=== PATIENT | female | born 1960 | race Caucasian/White ===

== ENCOUNTER 2016-09-24 23:12 | Emergency (ER) | payer OTHER ==
[2016-09-24] MEDS ORDERED: ASPIRIN 81 MG CHEW TABLET As Ordered ONE (23:39)
[2016-09-24 23:56] LABS: BASO # 0.2 K/mm3 (0.0-0.2); BASO % 2.3 % (0.0-1.0); EOS # 0.1 K/mm3 (0.0-0.50); EOS % 1.9 % (0.0-3.0); LARGE UNSTAINED CELL # 0.2 K/mm3 (0.0-0.4); LARGE UNSTAINED CELL % 2.5 % (0.0-4.0); LYMPH # 2.6 K/mm3 (1.5-4.5); LYMPH % 33.1 % (24.0-44.0); MEAN CORPUSCULAR HEMOGLOBIN 29.7 pg (27.0-33.0); MEAN CORPUSCULAR HGB CONC 33.1 g/dl (32.0-36.5); MEAN CORPUSCULAR VOLUME 89.6 fl (80.0-96.0); MONO # 0.4 K/mm3 (0.0-0.8); MONO % 5.6 % (0.0-5.0); NEUTROPHILS % 54.6 % (36.0-66.0); PLATELET COUNT, AUTOMATED 215 k/mm3 (150-450); WHITE BLOOD COUNT 7.3 K/mm3 (4.0-10.0)
[2016-09-25 00:10] LABS: ANION GAP 8 MEQ/L (8-16); BLOOD UREA NITROGEN 15 MG/DL (7-18); CALCIUM LEVEL 9.3 MG/DL (8.5-10.1); CARBON DIOXIDE LEVEL 30 MEQ/L (21-32); CHLORIDE LEVEL 110 MEQ/L (98-107); CREATININE FOR GFR 1.02 MG/DL (0.55-1.02); GLOMERULAR FILTRATION RATE 59.5 (>51); GLUCOSE, FASTING 128 MG/DL (70-105); POTASSIUM SERUM 4.5 MEQ/L (3.5-5.1); SODIUM LEVEL 148 MEQ/L (136-145)
[2016-09-25] MEDS ORDERED: KETOROLAC 30 MG/ML VIAL (J1885) As Ordered ONE (01:12)
--- NOTE | 2016-09-25 04:32 | EDDOCDS ---
Nurse's Notes [facility] Name: Jace Todd Age: 56 yrs Sex: Female : 1960 Arrival Date: 09/24/2016 Time: 23:12 Bed OBSERVATION Private MD: Belgica Wiggins PA-C Diagnosis: Other chest pain-Chest wall pain Presentation: 09/24 23:18 Presenting complaint: Patient states: upper left sided chest pain for past few days sls1 worse with cough and breathing pain is sharp and does not radiate. Aspirin was not taken prior to arrival. Adult Sepsis Screening: The patient does not have new or worsening altered mentation. Patient's respiratory rate is less than 22. Systolic blood pressure is greater than 100. Patient has a qSOFA score of 0- Negative Sepsis Screen. Suicide/Homicide risk assessment- the patient denies having any suicidal and/or homicidal ideations and does not present with any other emotional, behavioral or mental health complaints. Status: Patient is not a public service representative or dependent. Transition of care: patient was not received from another setting of care. 23:18 Acuity: [place] Level 2 sls1 23:18 Method Of Arrival: Walkin/Carried/Asstd sls1 Triage Assessment: 23:20 General: Appears in no apparent distress, Behavior is appropriate for age, cooperative. sls1 Pain: Location: anterior aspect of left upper chest and left breast Pain currently is 8 out of 10 on a pain scale. Pt Declines HIV testing. The patient is triaged at the bedside. See Assessment in Nurses Notes section of ED record. Neurological: Level of Consciousness is awake, alert. Cardiovascular: Capillary refill < 3 seconds Chest pain is described as Pain is 8 out of 10 on a pain scale. radiates Does not radiate. episodes are continuous two days began two days. Derm: No deficits noted. Historical: - Allergies: PENICILLINS; - Home Meds: 1. migraine medication as needed - PMHx: Migraine Headaches; - PSHx: spinal injections; - Social history: Smoking status: Patient uses tobacco products, light tobacco smoker. No barriers to communication noted, The patient speaks fluent Albanian, Speaks appropriately for age. - Family history: Not pertinent. - : The pt / caregiver states he / she is not on anticoagulants. Home medication list is obtained from the patient. - Exposure Risk Screening:: None identified. Screenin/02 01:04 Screening information is obtained from the patient. Fall risk: No risks identified. af2 Assistance ADL's: requires no assistance with activities of daily living. Abuse/DV Screen: The patient / caregiver reports he/she is: not in a situation that causes fear, pain or injury. Nutritional screening: No deficits noted. Advance Directives: Currently, there is no health care proxy. home support is adequate. Assessment: 09/24 23:52 General: Appears in no apparent distress, Behavior is appropriate for age, Smells of af2 smoke. Neurological: Level of Consciousness is awake, alert, obeys commands, Oriented to person, place, time. Cardiovascular: Heart tones S1 S2 present Rhythm is sinus rhythm No ectopy. Respiratory: Airway is patent Respiratory effort is even, unlabored, Breath sounds are clear bilaterally. Derm: Skin is intact, is healthy with good turgor, Skin is normal. 09/25 01:14 General: Appears in no apparent distress, Behavior is appropriate for age. af2 Neurological: Level of Consciousness is awake, alert, obeys commands, Oriented to person, place, time. Respiratory: Airway is patent Respiratory effort is even, unlabored. Derm: Skin is normal. 02:15 General: Appears in no apparent distress, Behavior is appropriate for age, cooperative. af2 Neurological: Level of Consciousness is awake, alert, obeys commands, Oriented to person, place, time. Cardiovascular: Rhythm is sinus rhythm No ectopy. Respiratory: Airway is patent Respiratory effort is even, unlabored. Derm: Skin is intact, is healthy with good turgor, Skin is normal. 03:26 General: Appears in no apparent distress, Behavior is appropriate for age, cooperative. af2 Neurological: Level of Consciousness is awake, alert, obeys commands, Oriented to person, place, time. Cardiovascular: Rhythm is sinus rhythm No ectopy. Respiratory: Airway is patent Respiratory effort is even, unlabored. Derm: Skin is intact, is healthy with good turgor, Skin is normal. 04:30 General: Appears in no apparent distress, Behavior is appropriate for age, cooperative, sls1 discharge instructions reviewed with pt including medication use and follow up care, verbalizes understanding of all instructions. Pain: Denies pain. Neurological: Level of Consciousness is awake, alert. Respiratory: Airway is patent Respiratory effort is even, unlabored, Respiratory pattern is regular, symmetrical. Vital Signs: 09/24 23:14 BP 207 / 101; Pulse 95; Resp 18; Temp 97.2; Pulse Ox 100% ; Weight 59.87 kg; Height 5 elp ft. 0 in. (152.40 cm); Pain 810; 23:33 BP 175 / 94 (auto/); af2 23:34 Pulse 84 MON; Resp 18 S; Pulse Ox 98% on R/A; af2 23:37 BP 175 / 94; Pulse 92; Resp 20; Temp 97.2(O); Pulse Ox 98% on R/A; Weight 59.87 kg (R); jmv Height 5 ft. (152.40 cm) (R); Pain 8; 23:37 BP 173 / 85 (auto/); af2 23:38 Pulse 92 MON; Resp 18 S; Pulse Ox 96% on R/A; af2 23:52 BP 152 / 78 (auto/); af2 23:53 Pulse 76 MON; Resp 18 S; Pulse Ox 94% on R/A; af2 09/25 00:07 BP 144 / 81 (auto/); af2 00:08 Pulse 74 MON; Resp 18 S; Pulse Ox 95% on R/A; af2 00:22 BP 138 / 72 (auto/); af2 00:23 Pulse 74 MON; Resp 18 S; Pulse Ox 94% on R/A; af2 00:37 BP 140 / 70 (auto/); af2 00:38 Pulse 70 MON; Resp 18 S; Pulse Ox 94% on R/A; af2 00:52 BP 124 / 69 (auto/); af2 00:53 Pulse 72 MON; Resp 18 S; Pulse Ox 94% on R/A; af2 01:07 BP 127 / 62 (auto/); af2 01:08 Pulse 70 MON; Pulse Ox 94% ; af2 01:22 BP 159 / 79 (auto/); af 01:23 Pulse 74 MON; Pulse Ox 95% ; af2 01:37 BP 162 / 88 (auto/); af2 01:38 Pulse 70 MON; Pulse Ox 97% ; af2 01:52 BP 142 / 78 (auto/); af2 01:53 Pulse 72 MON; Pulse Ox 97% ; af2 02:07 BP 165 / 86 (auto/); af2 02:07 Pulse 86 MON; Pulse Ox 97% ; af2 02:22 BP 120 / 57 (auto/); af2 02:23 Pulse 70 MON; Pulse Ox 96% ; af2 02:37 BP 134 / 71 (auto/); af2 02:38 Pulse 68 MON; Pulse Ox 96% ; af2 02:52 BP 130 / 66 (auto/); af2 02:53 Pulse 64 MON; Pulse Ox 96% ; af2 03:07 BP 149 / 89 (auto/); af2 03:08 Pulse 68 MON; Pulse Ox 97% ; af2 03:22 BP 159 / 89 (auto/); af2 03:23 Pulse 72 MON; Pulse Ox 97% ; af2 03:37 BP 146 / 83 (auto/); sls1 03:38 Pulse 70 MON; Pulse Ox 95% ; sls1 03:52 BP 152 / 88 (auto/); sls1 03:54 Pulse 70 MON; Pulse Ox 97% ; sls1 04:07 BP 159 / 88 (auto/); sls1 04:08 Pulse 68 MON; Pulse Ox 97% ; sls1 04:09 BP 159 / 88; Pulse 68; Resp 18; Temp 97.5(TE); Pulse Ox 97% on R/A; Pain 0/10; antione 04:22 BP 154 / 81 (auto/); sls1 04:23 Pulse 66 MON; Resp 18; Temp 97.2(TE); Pulse Ox 97% on R/A; Pain 0/10; sls1 09/24 23:37 Body Mass Index 25.78 (59.87 kg, 152.40 cm) [facility] Vitals: 09/24 23:14 Log In Time: September 24, 2016 at 23:12. RN notified that patient meets Red Flag elp criteria. ED Course: 23:13 Patient visited by Masha Fu PCA. elp 23:13 Belgica Wiggins is Private Physician. elp 23:13 Patient moved to Waiting elp 23:14 Patient visited by Masha Fu PCA. elp 23:17 Kizzy Sanchez,RN is Primary Nurse. elp 23:17 Patient moved to 12 elp 23:18 [facility] bs6 23:18 Albin Watts DO is Attending Physician. bs6 23:20 Patient visited by Angelita Dorado DO. bs6 23:20 Patient visited by Angelita Dorado DO. bs6 23:20 Triage Initiated sls1 23:36 EKG done. (by ED staff). Reviewed by Angelita Dorado DO. jmv 23:37 Pt greeted and oriented to ED. Patient advised of names of staff involved in care, [facility] location of call beal, wait times and NPO status. Patient has correct armband on for positive identification. Placed in gown. Bed in low position. Call light in reach. Side rails up X2. multimedia engineer on. Pulse ox on. NIBP on. 23:39 Patient visited by Pedro Luis Sanches PCA. jmv 23:51 Patient visited by Kizzy Sanchez RN. af2 23:52 The patient / caregiver is instructed regarding the plan of care and ED course. af2 23:52 Troponin Sent. af2 23:52 Cardiac Injury Profile Sent. af2 23:52 CBC with Diff Sent. af2 23:52 Basic Metabolic Profile Sent. af2 23:52 Inserted saline lock: 18 gauge in right antecubital area and blood collected. The af2 patient tolerated the procedure well. 23:52 No procedures done that require assistance. af2 23:53 Patient visited by Kizzy Sanchez RN. af2 23:58 [facility] Payment Agreement was scanned into [employer] and attached to record. lja 01 00:25 Patient visited by Kizzy Sanchez RN. af2 00:47 Patient moved to OBSERVATION cs11 01:17 Patient visited by Kizzy Sanchez RN. af2 03:18 EKG done. (by ED staff). Reviewed by Angelita Dorado DO. antione 03:24 CARDIAC MARKER PANEL Sent. af2 03:27 Patient visited by Kizzy Sanchez RN. af2 04:06 Belgica Wiggins is Referral Physician. bs6 04:06 Paresh Curiel MD is Referral Physician. bs6 04:10 Patient visited by Marianne Serrato PCA. antione 04:23 Discontinued lock intact, bleeding controlled, pressure dressing applied, No sls1 redness/swelling at site. Administered Medications: 09/24 23:52 Drug: Aspirin 324 mg [aspirin 81 mg chewable tablet (4 tabs)] Route: PO; af2 09/25 01:17 Drug: ketorolac 30 mg [ketorolac 30 mg/mL (1 mL) injection solution (1 mL)] Route: IVP; af2 Site: right antecubital; Order Results: Lab Order: Basic Metabolic Profile; SPEC'M 09/24/16 23:24 Test: GLUCOSE, FASTING; Value: 128; Range: 70-105; Abnormal: Above high normal; Units: MG/DL; Status: F Test: BLOOD UREA NITROGEN; Value: 15; Range: 7-18; Units: MG/DL; Status: F Test: CREATININE FOR GFR; Value: 1.02; Range: 0.55-1.02; Units: MG/DL; Status: F Test: GLOMERULAR FILTRATION RATE; Value: 59.5; Range: >51; Status: F Test: SODIUM LEVEL; Value: 148; Range: 136-145; Abnormal: Above high normal; Units: MEQ/L; Status: F Test: POTASSIUM SERUM; Value: 4.5; Range: 3.5-5.1; Units: MEQ/L; Status: F Test: CHLORIDE LEVEL; Value: 110; Range: 98-107; Abnormal: Above high normal; Units: MEQ/L; Status: F Test: CARBON DIOXIDE LEVEL; Value: 30; Range: 21-32; Units: MEQ/L; Status: F Test: ANION GAP; Value: 8; Range: 8-16; Units: MEQ/L; Status: F Test: CALCIUM LEVEL; Value: 9.3; Range: 8.5-10.1; Units: MG/DL; Status: F Test Note: ; Units are mL/min/1.73 m2 Chronic Kidney Disease Staging per NKF: Stage I & II GFR >=60 Normal to Mildly Decreased Stage III GFR 30-59 Moderately Decreased Stage IV GFR 15-29 Severely Decreased Stage V GFR <15 Very Little GFR Left ESRD GFR <15 on FUR BLOWING MACHINE ATTENDANT Lab Order: CBC with Diff; SPEC'M 09/24/16 23:24 Test: WHITE BLOOD COUNT; Value: 7.3; Range: 4.0-10.0; Units: K/mm3; Status: F Test: RED BLOOD COUNT; Value: 5.41; Range: 4.00-5.40; Abnormal: Above high normal; Units: M/mm3; Status: F Test: HEMOGLOBIN; Value: 16.1; Range: 12.0-16.0; Abnormal: Above high normal; Units: g/dl; Status: F Test: HEMATOCRIT; Value: 48.5; Range: 36.0-47.0; Abnormal: Above high normal; Units: %; Status: F Test: MEAN CORPUSCULAR VOLUME; Value: 89.6; Range: 80.0-96.0; Units: fl; Status: F Test: MEAN CORPUSCULAR HEMOGLOBIN; Value: 29.7; Range: 27.0-33.0; Units: pg; Status: F Test: MEAN CORPUSCULAR HGB CONC; Value: 33.1; Range: 32.0-36.5; Units: g/dl; Status: F Test: RED CELL DISTRIBUTION WIDTH; Value: 13.0; Range: 11.5-14.5; Units: %; Status: F Test: PLATELET COUNT, AUTOMATED; Value: 215; Range: 150-450; Units: k/mm3; Status: F Test: NEUTROPHILS %; Value: 54.6; Range: 36.0-66.0; Units: %; Status: F Test: LYMPH %; Value: 33.1; Range: 24.0-44.0; Units: %; Status: F Test: MONO %; Value: 5.6; Range: 0.0-5.0; Abnormal: Above high normal; Units: %; Status: F Test: EOS %; Value: 1.9; Range: 0.0-3.0; Units: %; Status: F Test: BASO %; Value: 2.3; Range: 0.0-1.0; Abnormal: Above high normal; Units: %; Status: F Test: LARGE UNSTAINED CELL %; Value: 2.5; Range: 0.0-4.0; Units: %; Status: F Test: NEUTROPHILS #; Value: 4.0; Range: 1.8-7.7; Units: K/mm3; Status: F Test: LYMPH #; Value: 2.6; Range: 1.5-4.5; Units: K/mm3; Status: F Test: MONO #; Value: 0.4; Range: 0.0-0.8; Units: K/mm3; Status: F Test: EOS #; Value: 0.1; Range: 0.0-0.50; Units: K/mm3; Status: F Test: BASO #; Value: 0.2; Range: 0.0-0.2; Units: K/mm3; Status: F Test: LARGE UNSTAINED CELL #; Value: 0.2; Range: 0.0-0.4; Units: K/mm3; Status: F Lab Order: Cardiac Injury Profile; [facility]' 09/24/16 23:24 Test: CPK CREATINE PHOSPHOKINASE; Value: 93; Range: 26-192; Units: U/L; Status: F Test: CK-MB VALUE MASS; Value: 1.0; Range: 0.0-3.6; Units: NG/ML; Status: F Test: MB/CK RELATIVE INDEX; Value: 1.07; Range: < OR =4; Status: F Test Note: ; DIAGNOSIS CRITERIA MMB ng/ml Relative Index (RI) NON-AMI < or = 5 N/A VERG[place] ZONE > 5 < or = 4 AMI > 5 > 4 Lab Order: Troponin; [facility]' 09/24/16 23:24 Test: TROPONIN I; Value: < 0.02; Range: < 0.10; Units: NG/ML; Status: F Test Note: ; Troponin I Reference Interval for [employer] LOCI: 99th Percentile= 0.00-0.045 ng/ml Risk Stratification: <= 0.10 ng/ml Decreased Risk for Adverse Clinical Events. 0.10-1.50 ng/ml Increased Risk for Adverse Clinical Events. Evaluation of additional criterion and/or repeat testing in 2-6 hours is suggested to rule out myocardial damage. >= 1.50 ng/ml Indicative of Myocardial Injury. Lab Order: CARDIAC MARKER PANEL; SPEC' 09/25/16 03:23 Test: CPK CREATINE PHOSPHOKINASE; Value: 72; Range: 26-192; Units: U/L; Status: F Test: CK-MB VALUE MASS; Value: 1.0; Range: 0.0-3.6; Units: NG/ML; Status: F Test: MB/CK RELATIVE INDEX; Value: 1.38; Range: < OR =4; Status: F Test: TROPONIN I; Value: < 0.02; Range: < 0.10; Units: NG/ML; Status: F Test Note: ; DIAGNOSIS CRITERIA MMB ng/ml Relative Index (RI) NON-AMI < or = 5 N/A VERG[place] ZONE > 5 < or = 4 AMI > 5 > 4 Outcome: 04:07 Discharge ordered by Provider. bs6 04:23 Discharge Assessment: Patient awake, alert and oriented x 3. No cognitive and/or sls1 functional deficits noted. Patient verbalized understanding of disposition instructions. patient administered narcotics - no. The following High Risk Discharge criteria are identified: None. Discharged to home ambulatory. Condition: stable. Discharge instructions given to patient, Instructed on discharge instructions, follow up and referral plans. medication usage, Demonstrated understanding of instructions, medications, Pt was receptive of discharge instructions/ teaching. Prescriptions given X 2. No special radiology studies were completed. Property sent home with patient. 04:32 Patient left the ED. sls1 Signatures: Marianne Serrato, BEAUTY CULTURE TEACHER BEAUTY CULTURE TEACHER Gloria Clinton, RN RN sls1 Albin Watts, DO DO cs11 Leigh Pedro, BEAUTY CULTURE TEACHER BEAUTY CULTURE TEACHER tmm1 Masha Fu, BEAUTY CULTURE TEACHER BEAUTY CULTURE TEACHER elp Angelita Dorado, DO DO bs6 Kizzy Sanchez RN RN af2 Laith, Pedro Luis Hickey, BEAUTY CULTURE TEACHER BEAUTY CULTURE TEACHER jmv Corrections: (The following items were deleted from the chart) 01:00 00:52 CARDIAC MARKER PANEL+LAB sent. tmm1 EDMS MTDD
--- NOTE | 2016-09-25 04:32 | EDDOCDS ---
Physician Documentation [facility] Name: Jace Todd Age: 56 yrs Sex: Female : 1960 Arrival Date: 09/24/2016 Time: 23:12 Bed OBSERVATION Private MD: Belgica Wiggins PA-C Disposition: 09/25/16 04:07 Discharged to Home/Self Care. Impression: Other chest pain - Chest wall pain. - Condition is Stable. - Discharge Instructions: Chest Wall Pain. - Prescriptions for Ibuprofen 600 mg Oral Tablet - take 1 tablet by ORAL route every 6 hours As needed take with food; 30 tablet. Aspirin 81 mg - take 1 tablet by ORAL route once daily; 90 tablet. - Medication Reconciliation, Local Pharmacy Hours form. - Follow up: Belgica Wiggins; When: Call to arrange an appointment; Reason: Recheck today's complaints, Continuance of care. Follow up: Paresh Curiel MD; When: Call to arrange an appointment; Reason: To establish care. - Problem is new. - Symptoms have improved. Historical: - Allergies: PENICILLINS; - Home Meds: 1. migraine medication as needed - PMHx: Migraine Headaches; - PSHx: spinal injections; - Social history: Smoking status: Patient uses tobacco products, light tobacco smoker. No barriers to communication noted, The patient speaks fluent Hungarian, Speaks appropriately for age. - Family history: Not pertinent. - : The pt / caregiver states he / she is not on anticoagulants. Home medication list is obtained from the patient. - Exposure Risk Screening:: None identified. Vital Signs: 09/24 23:14 BP 207 / 101; Pulse 95; Resp 18; Temp 97.2; Pulse Ox 100% ; Weight 59.87 kg / 131.99 elp lbs; Height 5 ft. 0 in. (152.40 cm); Pain 8/10; 23:33 BP 175 / 94 (auto/); af2 23:34 Pulse 84 MON; Resp 18 S; Pulse Ox 98% on R/A; af2 23:37 BP 175 / 94; Pulse 92; Resp 20; Temp 97.2(O); Pulse Ox 98% on R/A; Weight 59.87 kg / jmv 131.99 lbs (R); Height 5 ft. (152.40 cm) (R); Pain 8/10; 23:37 BP 173 / 85 (auto/); af2 23:38 Pulse 92 MON; Resp 18 S; Pulse Ox 96% on R/A; af2 23:52 BP 152 / 78 (auto/); af2 23:53 Pulse 76 MON; Resp 18 S; Pulse Ox 94% on R/A; af2 / 00:07 BP 144 / 81 (auto/); af2 00:08 Pulse 74 MON; Resp 18 S; Pulse Ox 95% on R/A; af2 00:22 BP 138 / 72 (auto/); af2 00:23 Pulse 74 MON; Resp 18 S; Pulse Ox 94% on R/A; af2 00:37 BP 140 / 70 (auto/); af2 00:38 Pulse 70 MON; Resp 18 S; Pulse Ox 94% on R/A; af2 00:52 BP 124 / 69 (auto/); af2 00:53 Pulse 72 MON; Resp 18 S; Pulse Ox 94% on R/A; af2 01:07 BP 127 / 62 (auto/); af2 01:08 Pulse 70 MON; Pulse Ox 94% ; af2 01:22 BP 159 / 79 (auto/); af2 01:23 Pulse 74 MON; Pulse Ox 95% ; af2 01:37 BP 162 / 88 (auto/); af2 01:38 Pulse 70 MON; Pulse Ox 97% ; af2 01:52 BP 142 / 78 (auto/); af2 01:53 Pulse 72 MON; Pulse Ox 97% ; af2 02:07 BP 165 / 86 (auto/); af2 02:07 Pulse 86 MON; Pulse Ox 97% ; af2 02:22 BP 120 / 57 (auto/); af2 02:23 Pulse 70 MON; Pulse Ox 96% ; af2 02:37 BP 134 / 71 (auto/); af2 02:38 Pulse 68 MON; Pulse Ox 96% ; af2 02:52 BP 130 / 66 (auto/); af2 02:53 Pulse 64 MON; Pulse Ox 96% ; af2 03:07 BP 149 / 89 (auto/); af2 03:08 Pulse 68 MON; Pulse Ox 97% ; af2 03:22 BP 159 / 89 (auto/); af2 03:23 Pulse 72 MON; Pulse Ox 97% ; af2 03:37 BP 146 / 83 (auto/); sls1 03:38 Pulse 70 MON; Pulse Ox 95% ; sls1 03:52 BP 152 / 88 (auto/); sls1 03:54 Pulse 70 MON; Pulse Ox 97% ; sls1 04:07 BP 159 / 88 (auto/); sls1 04:08 Pulse 68 MON; Pulse Ox 97% ; sls1 04:09 BP 159 / 88; Pulse 68; Resp 18; Temp 97.5(TE); Pulse Ox 97% on R/A; Pain 0/10; antione 04:22 BP 154 / 81 (auto/); sls1 04:23 Pulse 66 MON; Resp 18; Temp 97.2(TE); Pulse Ox 97% on R/A; Pain 0/10; sls1 09/24 23:37 Body Mass Index 25.78 (59.87 kg, 152.40 cm) jmv MDM: 09/24 23:18 ECG WITH READING ER PHYS+CARDIAG ordered. EDMS 23:36 Aspirin Chewable Tablet 324 mg PO once ordered. bs6 23:36 Neon Sign Maker/Pulse Ox/q 30 min VS ordered. bs6 23:36 IV Saline Lock ordered. bs6 23:36 Rhythm Strip to chart ordered. bs6 23:36 Undress patient appropriately for examination ordered. bs6 23:37 Basic Metabolic Profile Ordered. EDMS 23:37 CBC with Diff Ordered. EDMS 23:37 Cardiac Injury Profile Ordered. EDMS 23:37 Troponin Ordered. EDMS 23:37 Chest, 2 View (pa\E\lat) Ordered. EDMS 23:58 [facility] Payment Agreement was scanned into [employer] and attached to record. lja 23:58 Financial registration complete. lja 09/25 00:41 Basic Metabolic Profile Reviewed. cs11 00:41 CBC with Diff Reviewed. cs11 00:41 Cardiac Injury Profile Reviewed. cs11 00:41 Troponin Reviewed. cs11 00:43 Repeat EKG (put time details section) ordered. bs6 00:46 ketorolac 30 mg IVP once ordered. bs6 00:52 Repeat EKG (put time details section) complete. tmm1 00:53 ECG WITH READING ER PHYS ordered. EDMS 00:53 CARDIAC MARKER PANEL Ordered. EDMS Administered Medications: 09/24 23:52 Drug: Aspirin 324 mg [aspirin 81 mg chewable tablet (4 tabs)] Route: PO; af2 09/25 01:17 Drug: ketorolac 30 mg [ketorolac 30 mg/mL (1 mL) injection solution (1 mL)] Route: IVP; af2 Site: right antecubital; Signatures: Dispatcher [employer] EDMS Gloria Milian RN RN sls1 Albin Watts, DO DO cs11 McLear, Leigh, FIRE OBSERVER FIRE OBSERVER tmm1 Angelita Dorado, DO DO bs6 Kizzy Sanchez RN RN af2 Paige Ozuna The chart was reviewed and I authenticate all verbal orders and agree with the evaluation and treatment provided.Corrections: (The following items were deleted from the chart) 01:00 00:44 CARDIAC MARKER PANEL+LAB ordered. EDMS EDMS Attachments: 09/24 23:58 [facility] Payment Agreement yeni MTDD
--- NOTE | 2016-09-25 09:44 | REP ---
Clinical: Chest pain . Comparison: None . Technique: PA and lateral. Findings: The mediastinum and cardiac silhouette are normal. The lung carrero are clear and without acute consolidation, effusion, or pneumothorax. The skeletal structures are intact and normal. Impression: 1. No acute cardiopulmonary process. Signed by Quinten Ashford MD 09/25/2016 09:37 A
--- NOTE | 2016-09-25 10:08 | ECGEPIP ---
Stationary ECG Study [facility] - ED Test Date: 2016-09-24 Pat Name: BOWEN CARBAJAL Department: Room: - Gender: F Cost Recovery Technician: khushbu : 1960 Requested By: HUGO BATES Order Number: [id number] Reading MD: Jody Jefferson Measurements Intervals [place] Rate: 80 P: 77 NC: 153 QRS: 56 QRSD: 94 T: 39 QT: 379 QTc: 439 Interpretive Statements SINUS RHYTHM NO PRIOR FOR COMPARISON Electronically Signed On 09-25-2016 10:08:41 EST by Jody Jefferson
--- NOTE | 2016-09-25 10:09 | ECGEPIP ---
Stationary ECG Study [facility] - ED Test Date: 2016-09-25 Pat Name: BOWEN CARBAJAL Department: Room: - Gender: F Woolen Tester: MerinoB: 1960 Requested By: SUSHIL MORROW Order Number: [id number] Reading MD: Jody Jefferson Measurements Intervals [place] Rate: 70 P: 71 ND: 159 QRS: 42 QRSD: 90 T: 34 QT: 415 QTc: 449 Interpretive Statements SINUS RHYTHM DECREASED RATE 09/24/16 Electronically Signed On 09-25-2016 10:09:41 EST by Jody Jefferson
--- NOTE | 2016-09-27 05:32 | EDDOCDS ---
Physician Documentation [facility] Name: Jace Todd Age: 56 yrs Sex: Female : 1960 Arrival Date: 09/24/2016 Time: 23:12 Bed OBSERVATION Private MD: Belgica Wiggins PA-C Disposition: 09/25/16 04:07 Discharged to Home/Self Care. Impression: Other chest pain - Chest wall pain. - Condition is Stable. - Discharge Instructions: Chest Wall Pain. - Prescriptions for Ibuprofen 600 mg Oral Tablet - take 1 tablet by ORAL route every 6 hours As needed take with food; 30 tablet. Aspirin 81 mg - take 1 tablet by ORAL route once daily; 90 tablet. - Medication Reconciliation, Local Pharmacy Hours form. - Follow up: Belgica Wiggins; When: Call to arrange an appointment; Reason: Recheck today's complaints, Continuance of care. Follow up: Paresh Curiel MD; When: Call to arrange an appointment; Reason: To establish care. - Problem is new. - Symptoms have improved. Historical: - Allergies: PENICILLINS; - Home Meds: 1. migraine medication as needed - PMHx: Migraine Headaches; - PSHx: spinal injections; - Social history: Smoking status: Patient uses tobacco products, light tobacco smoker. No barriers to communication noted, The patient speaks fluent Yoruba, Speaks appropriately for age. - Family history: Not pertinent. - : The pt / caregiver states he / she is not on anticoagulants. Home medication list is obtained from the patient. - Exposure Risk Screening:: None identified. Vital Signs: 09/24 23:14 BP 207 / 101; Pulse 95; Resp 18; Temp 97.2; Pulse Ox 100% ; Weight 59.87 kg / 131.99 elp lbs; Height 5 ft. 0 in. (152.40 cm); Pain 8/10; 23:33 BP 175 / 94 (auto/); af2 23:34 Pulse 84 MON; Resp 18 S; Pulse Ox 98% on R/A; af2 23:37 BP 175 / 94; Pulse 92; Resp 20; Temp 97.2(O); Pulse Ox 98% on R/A; Weight 59.87 kg / jmv 131.99 lbs (R); Height 5 ft. (152.40 cm) (R); Pain 8/10; 23:37 BP 173 / 85 (auto/); af2 23:38 Pulse 92 MON; Resp 18 S; Pulse Ox 96% on R/A; af2 23:52 BP 152 / 78 (auto/); af2 23:53 Pulse 76 MON; Resp 18 S; Pulse Ox 94% on R/A; af2 / 00:07 BP 144 / 81 (auto/); af2 00:08 Pulse 74 MON; Resp 18 S; Pulse Ox 95% on R/A; af2 00:22 BP 138 / 72 (auto/); af2 00:23 Pulse 74 MON; Resp 18 S; Pulse Ox 94% on R/A; af2 00:37 BP 140 / 70 (auto/); af2 00:38 Pulse 70 MON; Resp 18 S; Pulse Ox 94% on R/A; af2 00:52 BP 124 / 69 (auto/); af2 00:53 Pulse 72 MON; Resp 18 S; Pulse Ox 94% on R/A; af2 01:07 BP 127 / 62 (auto/); af2 01:08 Pulse 70 MON; Pulse Ox 94% ; af2 01:22 BP 159 / 79 (auto/); af2 01:23 Pulse 74 MON; Pulse Ox 95% ; af2 01:37 BP 162 / 88 (auto/); af2 01:38 Pulse 70 MON; Pulse Ox 97% ; af2 01:52 BP 142 / 78 (auto/); af2 01:53 Pulse 72 MON; Pulse Ox 97% ; af2 02:07 BP 165 / 86 (auto/); af2 02:07 Pulse 86 MON; Pulse Ox 97% ; af2 02:22 BP 120 / 57 (auto/); af2 02:23 Pulse 70 MON; Pulse Ox 96% ; af2 02:37 BP 134 / 71 (auto/); af2 02:38 Pulse 68 MON; Pulse Ox 96% ; af2 02:52 BP 130 / 66 (auto/); af2 02:53 Pulse 64 MON; Pulse Ox 96% ; af2 03:07 BP 149 / 89 (auto/); af2 03:08 Pulse 68 MON; Pulse Ox 97% ; af2 03:22 BP 159 / 89 (auto/); af2 03:23 Pulse 72 MON; Pulse Ox 97% ; af2 03:37 BP 146 / 83 (auto/); sls1 03:38 Pulse 70 MON; Pulse Ox 95% ; sls1 03:52 BP 152 / 88 (auto/); sls1 03:54 Pulse 70 MON; Pulse Ox 97% ; sls1 04:07 BP 159 / 88 (auto/); sls1 04:08 Pulse 68 MON; Pulse Ox 97% ; sls1 04:09 BP 159 / 88; Pulse 68; Resp 18; Temp 97.5(TE); Pulse Ox 97% on R/A; Pain 0/10; antione 04:22 BP 154 / 81 (auto/); sls1 04:23 Pulse 66 MON; Resp 18; Temp 97.2(TE); Pulse Ox 97% on R/A; Pain 0/10; sls1 09/24 23:37 Body Mass Index 25.78 (59.87 kg, 152.40 cm) [facility] MDM: 09/24 23:18 ECG WITH READING ER PHYS+CARDIAG ordered. EDMS 23:36 Aspirin Chewable Tablet 324 mg PO once ordered. bs6 23:36 Utility Locator/Pulse Ox/q 30 min VS ordered. bs6 23:36 IV Saline Lock ordered. bs6 23:36 Rhythm Strip to chart ordered. bs6 23:36 Undress patient appropriately for examination ordered. bs6 23:37 Basic Metabolic Profile Ordered. EDMS 23:37 CBC with Diff Ordered. EDMS 23:37 Cardiac Injury Profile Ordered. EDMS 23:37 Troponin Ordered. EDMS 23:37 Chest, 2 View (pa\E\lat) Ordered. EDMS 23:58 [facility] Payment Agreement was scanned into [employer] and attached to record. lja 23:58 Financial registration complete. lja 09/25 00:41 Basic Metabolic Profile Reviewed. cs11 00:41 CBC with Diff Reviewed. cs11 00:41 Cardiac Injury Profile Reviewed. cs11 00:41 Troponin Reviewed. cs11 00:43 Repeat EKG (put time details section) ordered. bs6 00:46 ketorolac 30 mg IVP once ordered. bs6 00:52 Repeat EKG (put time details section) complete. tmm1 00:53 ECG WITH READING ER PHYS ordered. EDMS 00:53 CARDIAC MARKER PANEL Ordered. EDMS 05:54 T-Sheet-- Draft Copy was scanned into [employer] and attached to record. hs2 12:53 ECG/EKG was scanned into [employer] and attached to record. gb Administered Medications: 09/24 23:52 Drug: Aspirin 324 mg [aspirin 81 mg chewable tablet (4 tabs)] Route: PO; af2 09/25 01:17 Drug: ketorolac 30 mg [ketorolac 30 mg/mL (1 mL) injection solution (1 mL)] Route: IVP; af2 Site: right antecubital; Signatures: Dispatcher [employer] EDMS Sharda Scanlon, Reg Reg gb Gloria Milian RN RN sls1 Albin Watts, DO DO cs11 McLear, Leigh, RURAL CARRIER RURAL CARRIER tmm1 Angelita Dorado, DO DO bs6 Kizzy Sanchez RN RN af2 Laith, Catherine Cordon, Reg Reg hs2 The chart was reviewed and I authenticate all verbal orders and agree with the evaluation and treatment provided.Corrections: (The following items were deleted from the chart) 01:00 00:44 CARDIAC MARKER PANEL+LAB ordered. EDMS EDMS Attachments: 09/24 23:58 [facility] Payment Agreement 09/25 05:54 T-Sheet-- Draft Copy hs2 12:53 ECG/EKG Chart Complete MTDD
--- NOTE | 2016-09-27 05:32 | EDDOCDS ---
Physician Documentation [facility] Name: Jace Todd Age: 56 yrs Sex: Female : 1960 Arrival Date: 09/24/2016 Time: 23:12 Bed OBSERVATION Private MD: Belgica Wiggins PA-C Disposition: 09/25/16 04:07 Discharged to Home/Self Care. Impression: Other chest pain - Chest wall pain. - Condition is Stable. - Discharge Instructions: Chest Wall Pain. - Prescriptions for Ibuprofen 600 mg Oral Tablet - take 1 tablet by ORAL route every 6 hours As needed take with food; 30 tablet. Aspirin 81 mg - take 1 tablet by ORAL route once daily; 90 tablet. - Medication Reconciliation, Local Pharmacy Hours form. - Follow up: Belgica Wiggins; When: Call to arrange an appointment; Reason: Recheck today's complaints, Continuance of care. Follow up: Paresh Curiel MD; When: Call to arrange an appointment; Reason: To establish care. - Problem is new. - Symptoms have improved. Historical: - Allergies: PENICILLINS; - Home Meds: 1. migraine medication as needed - PMHx: Migraine Headaches; - PSHx: spinal injections; - Social history: Smoking status: Patient uses tobacco products, light tobacco smoker. No barriers to communication noted, The patient speaks fluent Maori, Speaks appropriately for age. - Family history: Not pertinent. - : The pt / caregiver states he / she is not on anticoagulants. Home medication list is obtained from the patient. - Exposure Risk Screening:: None identified. Vital Signs: 09/24 23:14 BP 207 / 101; Pulse 95; Resp 18; Temp 97.2; Pulse Ox 100% ; Weight 59.87 kg / 131.99 elp lbs; Height 5 ft. 0 in. (152.40 cm); Pain 8/10; 23:33 BP 175 / 94 (auto/); af2 23:34 Pulse 84 MON; Resp 18 S; Pulse Ox 98% on R/A; af2 23:37 BP 175 / 94; Pulse 92; Resp 20; Temp 97.2(O); Pulse Ox 98% on R/A; Weight 59.87 kg / jmv 131.99 lbs (R); Height 5 ft. (152.40 cm) (R); Pain 8/10; 23:37 BP 173 / 85 (auto/); af2 23:38 Pulse 92 MON; Resp 18 S; Pulse Ox 96% on R/A; af2 23:52 BP 152 / 78 (auto/); af2 23:53 Pulse 76 MON; Resp 18 S; Pulse Ox 94% on R/A; af2 / 00:07 BP 144 / 81 (auto/); af2 00:08 Pulse 74 MON; Resp 18 S; Pulse Ox 95% on R/A; af2 00:22 BP 138 / 72 (auto/); af2 00:23 Pulse 74 MON; Resp 18 S; Pulse Ox 94% on R/A; af2 00:37 BP 140 / 70 (auto/); af2 00:38 Pulse 70 MON; Resp 18 S; Pulse Ox 94% on R/A; af2 00:52 BP 124 / 69 (auto/); af2 00:53 Pulse 72 MON; Resp 18 S; Pulse Ox 94% on R/A; af2 01:07 BP 127 / 62 (auto/); af2 01:08 Pulse 70 MON; Pulse Ox 94% ; af2 01:22 BP 159 / 79 (auto/); af2 01:23 Pulse 74 MON; Pulse Ox 95% ; af2 01:37 BP 162 / 88 (auto/); af2 01:38 Pulse 70 MON; Pulse Ox 97% ; af2 01:52 BP 142 / 78 (auto/); af2 01:53 Pulse 72 MON; Pulse Ox 97% ; af2 02:07 BP 165 / 86 (auto/); af2 02:07 Pulse 86 MON; Pulse Ox 97% ; af2 02:22 BP 120 / 57 (auto/); af2 02:23 Pulse 70 MON; Pulse Ox 96% ; af2 02:37 BP 134 / 71 (auto/); af2 02:38 Pulse 68 MON; Pulse Ox 96% ; af2 02:52 BP 130 / 66 (auto/); af2 02:53 Pulse 64 MON; Pulse Ox 96% ; af2 03:07 BP 149 / 89 (auto/); af2 03:08 Pulse 68 MON; Pulse Ox 97% ; af2 03:22 BP 159 / 89 (auto/); af2 03:23 Pulse 72 MON; Pulse Ox 97% ; af2 03:37 BP 146 / 83 (auto/); sls1 03:38 Pulse 70 MON; Pulse Ox 95% ; sls1 03:52 BP 152 / 88 (auto/); sls1 03:54 Pulse 70 MON; Pulse Ox 97% ; sls1 04:07 BP 159 / 88 (auto/); sls1 04:08 Pulse 68 MON; Pulse Ox 97% ; sls1 04:09 BP 159 / 88; Pulse 68; Resp 18; Temp 97.5(TE); Pulse Ox 97% on R/A; Pain 0/10; antione 04:22 BP 154 / 81 (auto/); sls1 04:23 Pulse 66 MON; Resp 18; Temp 97.2(TE); Pulse Ox 97% on R/A; Pain 0/10; sls1 09/24 23:37 Body Mass Index 25.78 (59.87 kg, 152.40 cm) [facility] MDM: 09/24 23:18 ECG WITH READING ER PHYS+CARDIAG ordered. EDMS 23:36 Aspirin Chewable Tablet 324 mg PO once ordered. bs6 23:36 Brace Maker/Pulse Ox/q 30 min VS ordered. bs6 23:36 IV Saline Lock ordered. bs6 23:36 Rhythm Strip to chart ordered. bs6 23:36 Undress patient appropriately for examination ordered. bs6 23:37 Basic Metabolic Profile Ordered. EDMS 23:37 CBC with Diff Ordered. EDMS 23:37 Cardiac Injury Profile Ordered. EDMS 23:37 Troponin Ordered. EDMS 23:37 Chest, 2 View (pa\E\lat) Ordered. EDMS 23:58 [facility] Payment Agreement was scanned into [employer] and attached to record. lja 23:58 Financial registration complete. lja 09/25 00:41 Basic Metabolic Profile Reviewed. cs11 00:41 CBC with Diff Reviewed. cs11 00:41 Cardiac Injury Profile Reviewed. cs11 00:41 Troponin Reviewed. cs11 00:43 Repeat EKG (put time details section) ordered. bs6 00:46 ketorolac 30 mg IVP once ordered. bs6 00:52 Repeat EKG (put time details section) complete. tmm1 00:53 ECG WITH READING ER PHYS ordered. EDMS 00:53 CARDIAC MARKER PANEL Ordered. EDMS 05:54 T-Sheet-- Draft Copy was scanned into [employer] and attached to record. hs2 12:53 ECG/EKG was scanned into [employer] and attached to record. gb Administered Medications: 09/24 23:52 Drug: Aspirin 324 mg [aspirin 81 mg chewable tablet (4 tabs)] Route: PO; af2 09/25 01:17 Drug: ketorolac 30 mg [ketorolac 30 mg/mL (1 mL) injection solution (1 mL)] Route: IVP; af2 Site: right antecubital; Signatures: Dispatcher [employer] EDMS Sharda Scanlon, Reg Reg gb Gloria Milian RN RN sls1 Albin Watts, DO DO cs11 McLear, Leigh, DEVELOPMENT EXECUTIVE DEVELOPMENT EXECUTIVE tmm1 Angelita Dorado, DO DO bs6 Kizzy Sanchez RN RN af2 Laith, Catherine Cordon, Reg Reg hs2 The chart was reviewed and I authenticate all verbal orders and agree with the evaluation and treatment provided.Corrections: (The following items were deleted from the chart) 01:00 00:44 CARDIAC MARKER PANEL+LAB ordered. EDMS EDMS Attachments: 09/24 23:58 [facility] [place] Payment Agreement 09/25 05:54 T-Sheet-- Draft Copy hs2 12:53 ECG/EKG Chart Complete MTDD
--- NOTE | 2016-09-27 05:32 | EDDOCDS ---
Nurse's Notes [facility] Name: Jace Carbajal Age: 56 yrs Sex: Female : 1960 Arrival Date: 09/24/2016 Time: 23:12 Bed OBSERVATION Private MD: Belgica Wiggins PA-C Diagnosis: Other chest pain-Chest wall pain Presentation: 09/24 23:18 Presenting complaint: Patient states: upper left sided chest pain for past few days sls1 worse with cough and breathing pain is sharp and does not radiate. Aspirin was not taken prior to arrival. Adult Sepsis Screening: The patient does not have new or worsening altered mentation. Patient's respiratory rate is less than 22. Systolic blood pressure is greater than 100. Patient has a qSOFA score of 0- Negative Sepsis Screen. Suicide/Homicide risk assessment- the patient denies having any suicidal and/or homicidal ideations and does not present with any other emotional, behavioral or mental health complaints. Status: Patient is not a customer sales service manager or dependent. Transition of care: patient was not received from another setting of care. 23:18 Acuity: SALENA Level 2 sls1 23:18 Method Of Arrival: Walkin/Carried/Asstd sls1 Triage Assessment: 23:20 General: Appears in no apparent distress, Behavior is appropriate for age, cooperative. sls1 Pain: Location: anterior aspect of left upper chest and left breast Pain currently is 8 out of 10 on a pain scale. Pt Declines HIV testing. The patient is triaged at the bedside. See Assessment in Nurses Notes section of ED record. Neurological: Level of Consciousness is awake, alert. Cardiovascular: Capillary refill < 3 seconds Chest pain is described as Pain is 8 out of 10 on a pain scale. radiates Does not radiate. episodes are continuous two days began two days. Derm: No deficits noted. Historical: - Allergies: PENICILLINS; - Home Meds: 1. migraine medication as needed - PMHx: Migraine Headaches; - PSHx: spinal injections; - Social history: Smoking status: Patient uses tobacco products, light tobacco smoker. No barriers to communication noted, The patient speaks fluent Latvian, Speaks appropriately for age. - Family history: Not pertinent. - : The pt / caregiver states he / she is not on anticoagulants. Home medication list is obtained from the patient. - Exposure Risk Screening:: None identified. Screenin/02 01:04 Screening information is obtained from the patient. Fall risk: No risks identified. af2 Assistance ADL's: requires no assistance with activities of daily living. Abuse/DV Screen: The patient / caregiver reports he/she is: not in a situation that causes fear, pain or injury. Nutritional screening: No deficits noted. Advance Directives: Currently, there is no health care proxy. home support is adequate. Assessment: 09/24 23:52 General: Appears in no apparent distress, Behavior is appropriate for age, Smells of af2 smoke. Neurological: Level of Consciousness is awake, alert, obeys commands, Oriented to person, place, time. Cardiovascular: Heart tones S1 S2 present Rhythm is sinus rhythm No ectopy. Respiratory: Airway is patent Respiratory effort is even, unlabored, Breath sounds are clear bilaterally. Derm: Skin is intact, is healthy with good turgor, Skin is normal. 09/25 01:14 General: Appears in no apparent distress, Behavior is appropriate for age. af2 Neurological: Level of Consciousness is awake, alert, obeys commands, Oriented to person, place, time. Respiratory: Airway is patent Respiratory effort is even, unlabored. Derm: Skin is normal. 02:15 General: Appears in no apparent distress, Behavior is appropriate for age, cooperative. af2 Neurological: Level of Consciousness is awake, alert, obeys commands, Oriented to person, place, time. Cardiovascular: Rhythm is sinus rhythm No ectopy. Respiratory: Airway is patent Respiratory effort is even, unlabored. Derm: Skin is intact, is healthy with good turgor, Skin is normal. 03:26 General: Appears in no apparent distress, Behavior is appropriate for age, cooperative. af2 Neurological: Level of Consciousness is awake, alert, obeys commands, Oriented to person, place, time. Cardiovascular: Rhythm is sinus rhythm No ectopy. Respiratory: Airway is patent Respiratory effort is even, unlabored. Derm: Skin is intact, is healthy with good turgor, Skin is normal. 04:30 General: Appears in no apparent distress, Behavior is appropriate for age, cooperative, sls1 discharge instructions reviewed with pt including medication use and follow up care, verbalizes understanding of all instructions. Pain: Denies pain. Neurological: Level of Consciousness is awake, alert. Respiratory: Airway is patent Respiratory effort is even, unlabored, Respiratory pattern is regular, symmetrical. Vital Signs: 09/24 23:14 BP 207 / 101; Pulse 95; Resp 18; Temp 97.2; Pulse Ox 100% ; Weight 59.87 kg; Height 5 elp ft. 0 in. (152.40 cm); Pain 810; 23:33 BP 175 / 94 (auto/); af2 23:34 Pulse 84 MON; Resp 18 S; Pulse Ox 98% on R/A; af2 23:37 BP 175 / 94; Pulse 92; Resp 20; Temp 97.2(O); Pulse Ox 98% on R/A; Weight 59.87 kg (R); jmv Height 5 ft. (152.40 cm) (R); Pain 8; 23:37 BP 173 / 85 (auto/); af2 23:38 Pulse 92 MON; Resp 18 S; Pulse Ox 96% on R/A; af2 23:52 BP 152 / 78 (auto/); af2 23:53 Pulse 76 MON; Resp 18 S; Pulse Ox 94% on R/A; af2 09/25 00:07 BP 144 / 81 (auto/); af2 00:08 Pulse 74 MON; Resp 18 S; Pulse Ox 95% on R/A; af2 00:22 BP 138 / 72 (auto/); af2 00:23 Pulse 74 MON; Resp 18 S; Pulse Ox 94% on R/A; af2 00:37 BP 140 / 70 (auto/); af2 00:38 Pulse 70 MON; Resp 18 S; Pulse Ox 94% on R/A; af2 00:52 BP 124 / 69 (auto/); af2 00:53 Pulse 72 MON; Resp 18 S; Pulse Ox 94% on R/A; af2 01:07 BP 127 / 62 (auto/); af2 01:08 Pulse 70 MON; Pulse Ox 94% ; af2 01:22 BP 159 / 79 (auto/); af 01:23 Pulse 74 MON; Pulse Ox 95% ; af2 01:37 BP 162 / 88 (auto/); af2 01:38 Pulse 70 MON; Pulse Ox 97% ; af2 01:52 BP 142 / 78 (auto/); af2 01:53 Pulse 72 MON; Pulse Ox 97% ; af2 02:07 BP 165 / 86 (auto/); af2 02:07 Pulse 86 MON; Pulse Ox 97% ; af2 02:22 BP 120 / 57 (auto/); af2 02:23 Pulse 70 MON; Pulse Ox 96% ; af2 02:37 BP 134 / 71 (auto/); af2 02:38 Pulse 68 MON; Pulse Ox 96% ; af2 02:52 BP 130 / 66 (auto/); af2 02:53 Pulse 64 MON; Pulse Ox 96% ; af2 03:07 BP 149 / 89 (auto/); af2 03:08 Pulse 68 MON; Pulse Ox 97% ; af2 03:22 BP 159 / 89 (auto/); af2 03:23 Pulse 72 MON; Pulse Ox 97% ; af2 03:37 BP 146 / 83 (auto/); sls1 03:38 Pulse 70 MON; Pulse Ox 95% ; sls1 03:52 BP 152 / 88 (auto/); sls1 03:54 Pulse 70 MON; Pulse Ox 97% ; sls1 04:07 BP 159 / 88 (auto/); sls1 04:08 Pulse 68 MON; Pulse Ox 97% ; sls1 04:09 BP 159 / 88; Pulse 68; Resp 18; Temp 97.5(TE); Pulse Ox 97% on R/A; Pain 0/10; antione 04:22 BP 154 / 81 (auto/); sls1 04:23 Pulse 66 MON; Resp 18; Temp 97.2(TE); Pulse Ox 97% on R/A; Pain 0/10; sls1 09/24 23:37 Body Mass Index 25.78 (59.87 kg, 152.40 cm) [facility] Vitals: 09/24 23:14 Log In Time: September 24, 2016 at 23:12. RN notified that patient meets Red Flag elp criteria. ED Course: 23:13 Patient visited by Masha Fu PCA. elp 23:13 Belgica Wiggins is Private Physician. elp 23:13 Patient moved to Waiting elp 23:14 Patient visited by Masha Fu PCA. elp 23:17 Kizzy Sanchez,RN is Primary Nurse. elp 23:17 Patient moved to 12 elp 23:18 Sushil Morrow DO is [facility]. bs6 23:18 Hugo Bates DO is Attending Physician. bs6 23:20 Patient visited by Sushil Morrow DO. bs6 23:20 Patient visited by Sushil Morrow DO. bs6 23:20 Triage Initiated sls1 23:36 EKG done. (by ED staff). Reviewed by Sushil Morrow DO. jmv 23:37 Pt greeted and oriented to ED. Patient advised of names of staff involved in care, [facility] location of call beal, wait times and NPO status. Patient has correct armband on for positive identification. Placed in gown. Bed in low position. Call light in reach. Side rails up X2. quality assurance monitor on. Pulse ox on. NIBP on. 23:39 Patient visited by Pedro Luis Sanches PCA. jmv 23:51 Patient visited by Kizzy Sanchez RN. af2 23:52 The patient / caregiver is instructed regarding the plan of care and ED course. af2 23:52 Troponin Sent. af2 23:52 Cardiac Injury Profile Sent. af2 23:52 CBC with Diff Sent. af2 23:52 Basic Metabolic Profile Sent. af2 23:52 Inserted saline lock: 18 gauge in right antecubital area and blood collected. The af2 patient tolerated the procedure well. 23:52 No procedures done that require assistance. af2 23:53 Patient visited by Kizzy Sanchez RN. af2 23:58 [facility] Payment Agreement was scanned into [employer] and attached to record. lja 09/25 00:25 Patient visited by Kizzy Sanchez RN. af2 00:47 Patient moved to OBSERVATION cs11 01:17 Patient visited by Kizzy Sanchez RN. af2 03:18 EKG done. (by ED staff). Reviewed by Sushil Morrow DO. antione 03:24 CARDIAC MARKER PANEL Sent. af2 03:27 Patient visited by Kizzy Sanchez RN. af2 04:06 Belgica Wiggins is Referral Physician. bs6 04:06 Paresh Curiel MD is Referral Physician. bs6 04:10 Patient visited by Marianne Serrato PCA. antione 04:23 Discontinued lock intact, bleeding controlled, pressure dressing applied, No sls1 redness/swelling at site. 05:54 T-Sheet-- Draft Copy was scanned into [employer] and attached to record. hs2 09:56 Chest, 2 View (pa\E\lat) Returned. EDMS 10:20 EKG-ADULT Returned. EDMS 10:20 ECG WITH READING ER PHYS Returned. EDMS 12:53 ECG/EKG was scanned into [employer] and attached to record. gb Administered Medications: 09/24 23:52 Drug: Aspirin 324 mg [aspirin 81 mg chewable tablet (4 tabs)] Route: PO; af2 09/25 01:17 Drug: ketorolac 30 mg [ketorolac 30 mg/mL (1 mL) injection solution (1 mL)] Route: IVP; af2 Site: right antecubital; Order Results: Lab Order: Basic Metabolic Profile; SPEC'M 09/24/16 23:24 Test: GLUCOSE, FASTING; Value: 128; Range: 70-105; Abnormal: Above high normal; Units: MG/DL; Status: F Test: BLOOD UREA NITROGEN; Value: 15; Range: 7-18; Units: MG/DL; Status: F Test: CREATININE FOR GFR; Value: 1.02; Range: 0.55-1.02; Units: MG/DL; Status: F Test: GLOMERULAR FILTRATION RATE; Value: 59.5; Range: >51; Status: F Test: SODIUM LEVEL; Value: 148; Range: 136-145; Abnormal: Above high normal; Units: MEQ/L; Status: F Test: POTASSIUM SERUM; Value: 4.5; Range: 3.5-5.1; Units: MEQ/L; Status: F Test: CHLORIDE LEVEL; Value: 110; Range: 98-107; Abnormal: Above high normal; Units: MEQ/L; Status: F Test: CARBON DIOXIDE LEVEL; Value: 30; Range: 21-32; Units: MEQ/L; Status: F Test: ANION GAP; Value: 8; Range: 8-16; Units: MEQ/L; Status: F Test: CALCIUM LEVEL; Value: 9.3; Range: 8.5-10.1; Units: MG/DL; Status: F Test Note: ; Units are mL/min/1.73 m2 Chronic Kidney Disease Staging per NKF: Stage I & II GFR >=60 Normal to Mildly Decreased Stage III GFR 30-59 Moderately Decreased Stage IV GFR 15-29 Severely Decreased Stage V GFR <15 Very Little GFR Left ESRD GFR <15 on TV HOST Lab Order: CBC with Diff; SPEC'M 09/24/16 23:24 Test: WHITE BLOOD COUNT; Value: 7.3; Range: 4.0-10.0; Units: K/mm3; Status: F Test: RED BLOOD COUNT; Value: 5.41; Range: 4.00-5.40; Abnormal: Above high normal; Units: M/mm3; Status: F Test: HEMOGLOBIN; Value: 16.1; Range: 12.0-16.0; Abnormal: Above high normal; Units: g/dl; Status: F Test: HEMATOCRIT; Value: 48.5; Range: 36.0-47.0; Abnormal: Above high normal; Units: %; Status: F Test: MEAN CORPUSCULAR VOLUME; Value: 89.6; Range: 80.0-96.0; Units: fl; Status: F Test: MEAN CORPUSCULAR HEMOGLOBIN; Value: 29.7; Range: 27.0-33.0; Units: pg; Status: F Test: MEAN CORPUSCULAR HGB CONC; Value: 33.1; Range: 32.0-36.5; Units: g/dl; Status: F Test: RED CELL DISTRIBUTION WIDTH; Value: 13.0; Range: 11.5-14.5; Units: %; Status: F Test: PLATELET COUNT, AUTOMATED; Value: 215; Range: 150-450; Units: k/mm3; Status: F Test: NEUTROPHILS %; Value: 54.6; Range: 36.0-66.0; Units: %; Status: F Test: LYMPH %; Value: 33.1; Range: 24.0-44.0; Units: %; Status: F Test: MONO %; Value: 5.6; Range: 0.0-5.0; Abnormal: Above high normal; Units: %; Status: F Test: EOS %; Value: 1.9; Range: 0.0-3.0; Units: %; Status: F Test: BASO %; Value: 2.3; Range: 0.0-1.0; Abnormal: Above high normal; Units: %; Status: F Test: LARGE UNSTAINED CELL %; Value: 2.5; Range: 0.0-4.0; Units: %; Status: F Test: NEUTROPHILS #; Value: 4.0; Range: 1.8-7.7; Units: K/mm3; Status: F Test: LYMPH #; Value: 2.6; Range: 1.5-4.5; Units: K/mm3; Status: F Test: MONO #; Value: 0.4; Range: 0.0-0.8; Units: K/mm3; Status: F Test: EOS #; Value: 0.1; Range: 0.0-0.50; Units: K/mm3; Status: F Test: BASO #; Value: 0.2; Range: 0.0-0.2; Units: K/mm3; Status: F Test: LARGE UNSTAINED CELL #; Value: 0.2; Range: 0.0-0.4; Units: K/mm3; Status: F Lab Order: Cardiac Injury Profile; [facility]' 09/24/16 23:24 Test: CPK CREATINE PHOSPHOKINASE; Value: 93; Range: 26-192; Units: U/L; Status: F Test: CK-MB VALUE MASS; Value: 1.0; Range: 0.0-3.6; Units: NG/ML; Status: F Test: MB/CK RELATIVE INDEX; Value: 1.07; Range: < OR =4; Status: F Test Note: ; DIAGNOSIS CRITERIA MMB ng/ml Relative Index (RI) NON-AMI < or = 5 N/A VERGARA ZONE > 5 < or = 4 AMI > 5 > 4 Lab Order: Troponin; [facility]' 09/24/16 23:24 Test: TROPONIN I; Value: < 0.02; Range: < 0.10; Units: NG/ML; Status: F Test Note: ; Troponin I Reference Interval for [facility] LOCI: 99th Percentile= 0.00-0.045 ng/ml Risk Stratification: <= 0.10 ng/ml Decreased Risk for Adverse Clinical Events. 0.10-1.50 ng/ml Increased Risk for Adverse Clinical Events. Evaluation of additional criterion and/or repeat testing in 2-6 hours is suggested to rule out myocardial damage. >= 1.50 ng/ml Indicative of Myocardial Injury. Lab Order: CARDIAC MARKER PANEL; [facility]' 09/25/16 03:23 Test: CPK CREATINE PHOSPHOKINASE; Value: 72; Range: 26-192; Units: U/L; Status: F Test: CK-MB VALUE MASS; Value: 1.0; Range: 0.0-3.6; Units: NG/ML; Status: F Test: MB/CK RELATIVE INDEX; Value: 1.38; Range: < OR =4; Status: F Test: TROPONIN I; Value: < 0.02; Range: < 0.10; Units: NG/ML; Status: F Test Note: ; DIAGNOSIS CRITERIA MMB ng/ml Relative Index (RI) NON-AMI < or = 5 N/A VERGARA ZONE > 5 < or = 4 AMI > 5 > 4 Radiology Order: EKG-ADULT Test: EKG-ADULT REASON FOR EXAMINATION: Chest Pain; Stationary ECG Study; [facility]; ; Test Date: 2016-09-24; Pat Name: JACE CARBAJAL Department:; Room: -; Gender: F 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 The lung carrero are clear and; without acute consolidation, effusion, or pneumothorax. The skeletal structures; are intact and normal.; ; Impression:; 1. 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 bs6 04:23 Discharge Assessment: Patient awake, alert and oriented x 3. No cognitive and/or sls1 functional deficits noted. Patient verbalized understanding of disposition instructions. patient administered narcotics - no. The following High Risk Discharge criteria are identified: None. Discharged to home ambulatory. Condition: stable. Discharge instructions given to patient, Instructed on discharge instructions, follow up and referral plans. medication usage, Demonstrated understanding of instructions, medications, Pt was receptive of discharge instructions/ teaching. Prescriptions given X 2. No special radiology studies were completed. Property sent home with patient. 04:32 Patient left the ED. sls1 Signatures: Dispatcher [employer] EDMS Sharda Scanlon, Reg Reg gb Ama, Marianne, FORESTRY SUPERVISOR FORESTRY SUPERVISOR Gloria Clinton RN RN sls1 Hugo Bates, DO DO cs11 McLrenetta, Leigh, FORESTRY SUPERVISOR FORESTRY SUPERVISOR tmm1 Masha Fu, FORESTRY SUPERVISOR FORESTRY SUPERVISOR Sushil Gregory, DO DO bs6 Kizzy Sanchez RN RN af2 Paige Ozuna Hillary, Reg Reg hs2 Myron, Pedro Luis, FORESTRY SUPERVISOR FORESTRY SUPERVISOR jmv Corrections: (The following items were deleted from the chart) 01:00 00:52 CARDIAC MARKER PANEL+LAB sent. [facility] Chart Complete MTDD
== END 2016-09-25 04:32 | disposition home or self-care (01) ==
LOC: M ED 23:12
DX: R07.89 Other chest pain (principal); G43.909 Migraine, unspecified, not intractable, without status migrainosus; Z72.0 Tobacco use; Z88.0 Allergy status to penicillin
CPT/HCPCS: 36415; 71020; 80048; 82550; 82553; 85025; 93005; 93041; 96374; 99285; J1885

== ENCOUNTER → 2016-10-03 | Outpatient (REF) | payer OTHER ==
[2016-10-03 15:55] LABS: ALBUMIN 3.7 GM/DL (3.2-5.2); ALBUMIN/GLOBULIN RATIO 1.28 (1.00-1.93); ALKALINE PHOSPHATASE 109 U/L (45-117); ALT/SGPT 20 U/L (12-78); ANION GAP 5 MEQ/L (8-16); AST/SGOT 12 U/L (15-37); BILIRUBIN,TOTAL 0.4 MG/DL (0.2-1.0); BLOOD UREA NITROGEN 12 MG/DL (7-18); CALCIUM LEVEL 8.7 MG/DL (8.5-10.1); CARBON DIOXIDE LEVEL 29 MEQ/L (21-32); CHLORIDE LEVEL 107 MEQ/L (98-107); CHOLESTEROL LEVEL 252 MG/DL (<200); CREATININE FOR GFR 0.85 MG/DL (0.55-1.02); GLOMERULAR FILTRATION RATE > 60.0 (>51); GLUCOSE, FASTING 90 MG/DL (70-105); POTASSIUM SERUM 4.1 MEQ/L (3.5-5.1); SODIUM LEVEL 141 MEQ/L (136-145); TOTAL PROTEIN 6.6 GM/DL (6.4-8.2); TRIGLYCERIDES LEVEL 134 MG/DL (<150)
== END ==
LOC: M SFHCLACO 09:03
PROVIDERS: ATTEND Physician Assistant
DX: I10 Essential (primary) hypertension (principal); R07.89 Other chest pain

== ENCOUNTER → 2017-01-04 | Outpatient (CLI) | payer MEDICARE, MEDICAID ==
[~2017-01-04] VITALS: Ht 154.9 cm; Wt 61.7 kg
[~2017-01-04] MED LIST: ASPI81TA85 PO; CYCL10TA PO; DICL75TA PO; IBUP600T26 PO; LISI-538 PO; NS 1,000 ML IV SCH; OMEP40CA2 PO; PROC5TA PO; PROP20EL PO; PROPOFOL 200 MG/20 ML VIAL As Ordered ONE; SUMA100T2 PO
--- NOTE | 2017-01-04 11:19 | ROOR ---
Patient Name: Jace Todd Procedure Date: 01/04/2017 9:59 AM Date of : 1960 Age: 56 Room: [facility] Gender: Female Note Status: Finalized Procedure: Colonoscopy Indications: Screening for colorectal malignant neoplasm Providers: Thierry POLANCO MD Referring MD: ALEJANDRA San PA-C Requesting Provider: Medicines: Monitored Anesthesia Care Complications: No immediate complications. Procedure: Pre-Anesthesia Assessment: - The heart rate, respiratory rate, oxygen saturations, blood pressure, adequacy of pulmonary ventilation, and response to care were monitored throughout the procedure. The Colonoscope was introduced through the anus and advanced to the cecum, identified by appendiceal orifice and ileocecal valve. The colonoscopy was performed without difficulty. The patient tolerated the procedure well. The quality of the bowel preparation was good. Findings: The perianal and digital rectal examinations were normal. (Exam: Complete, Prep: Good or Excellent.) A 12 mm polyp was found in the appendiceal orifice. The polyp was sessile. The polyp was removed with a piecemeal technique using a cold snare. Resection and retrieval were complete. Coagulation for destruction of remaining portion of lesion using argon beam at 0.8 liters/minute and 20 jarrell was successful. A 15 mm polyp was found in the cecum. The polyp was semi-sessile. The polyp was removed with a piecemeal technique using a cold snare. Resection and retrieval were complete. Coagulation for destruction of remaining portion of lesion using argon plasma at 0.8 liters/minute and 20 jarrell was successful. A 10 mm polyp was found in the distal ascending colon. The polyp was semi-sessile. The polyp was removed with a piecemeal technique using a cold snare. Resection and retrieval were complete. Coagulation for tissue destruction using argon plasma at 0.8 liters/minute and 20 jarrell was successful. A 10 mm polyp was found in the sigmoid colon. The polyp was semi-sessile. The polyp was removed with a piecemeal technique using a cold snare. Resection and retrieval were complete. Impression: - One 12 mm polyp at the appendiceal orifice, removed piecemeal using a cold snare. Resected and retrieved. Treated with APC. - One 15 mm polyp in the cecum, removed piecemeal using a cold snare. Resected and retrieved. Treated with APC. - One 10 mm polyp in the distal ascending colon, removed piecemeal using a cold snare. Resected and retrieved. Treated with (APC). - One 10 mm polyp in the sigmoid colon, removed piecemeal using a cold snare. Resected and retrieved. - The examination was otherwise normal. Recommendation: - Await pathology results. - Telephone endoscopist for pathology results in 2 weeks. - If the pathology report is benign, then repeat colonoscopy for surveillance after piecemeal polypectomy in 6 months. Thierry Polanco MD Thierry POLANCO MD 01/04/2017 10:34:28 AM This report has been signed electronically. Number of Addenda: 0 Note Initiated On: 01/04/2017 9:59 AM Estimated Blood Loss: Estimated blood loss: none.
== END | disposition home or self-care (01) ==
LOC: M OPP 09:13
PROVIDERS: ATTEND Internal Medicine Gastroenterology
DX: Z12.11 Encounter for screening for malignant neoplasm of colon (principal); D12.1 Benign neoplasm of appendix; D12.0 Benign neoplasm of cecum; D12.2 Benign neoplasm of ascending colon; D12.5 Benign neoplasm of sigmoid colon; I10 Essential (primary) hypertension; R12 Heartburn; R23.3 Spontaneous ecchymoses; M19.041 Primary osteoarthritis, right hand; M19.042 Primary osteoarthritis, left hand; K21.9 Gastro-esophageal reflux disease without esophagitis; F32.9 Major depressive disorder, single episode, unspecified; M54.9 Dorsalgia, unspecified; G43.909 Migraine, unspecified, not intractable, without status migrainosus; R56.9 Unspecified convulsions; Z86.69 Personal history of other diseases of the nervous system and sense organs; F17.210 Nicotine dependence, cigarettes, uncomplicated; Z88.0 Allergy status to penicillin; Z79.82 Long term (current) use of aspirin; Z79.899 Other long term (current) drug therapy; Z80.0 Family history of malignant neoplasm of digestive organs

== ENCOUNTER → 2017-04-26 | Outpatient (REF) | payer MEDICARE ==
[~2017-04-26] MED LIST changes: +CEPH500C PO; +HYDR12.55 PO; +IBUP-1022 PO; -IBUP600T26 PO; -NS 1,000 ML IV SCH; -PROPOFOL 200 MG/20 ML VIAL As Ordered ONE
[2017-04-26 16:21] LABS: ALBUMIN/GLOBULIN RATIO 1.43 (1.00-1.93); ALKALINE PHOSPHATASE 118 U/L (45-117); ALT/SGPT 32 U/L (12-78); ANION GAP 5 MEQ/L (8-16); AST/SGOT 15 U/L (15-37); BILIRUBIN,TOTAL 0.4 MG/DL (0.2-1.0); BLOOD UREA NITROGEN 12 MG/DL (7-18); CALCIUM LEVEL 9.9 MG/DL (8.5-10.1); CARBON DIOXIDE LEVEL 33 MEQ/L (21-32); CHLORIDE LEVEL 102 MEQ/L (98-107); CHOLESTEROL LEVEL 270 MG/DL (<200); GLOMERULAR FILTRATION RATE > 60.0 (>51); GLUCOSE, FASTING 81 MG/DL (70-105); POTASSIUM SERUM 4.1 MEQ/L (3.5-5.1); SODIUM LEVEL 140 MEQ/L (136-145); TOTAL PROTEIN 6.8 GM/DL (6.4-8.2); TRIGLYCERIDES LEVEL 123 MG/DL (<150)
== END ==
LOC: M SFHCLACO 08:51
PROVIDERS: ATTEND Physician Assistant
DX: I10 Essential (primary) hypertension (principal); E78.2 Mixed hyperlipidemia

== ENCOUNTER → 2017-04-27 | Outpatient (REF) | payer MEDICARE, MEDICAID | LOC: M SFHCLACO 15:53 | PROVIDERS: ATTEND Physician Assistant | DX: D22.39 Melanocytic nevi of other parts of face (principal) | CPT/HCPCS: 11311; 88305; G0463 ==

== ENCOUNTER → 2017-07-19 | Outpatient (REF) | payer MEDICARE, MEDICAID ==
[2017-07-19 15:51] LABS: ALBUMIN 4.2 GM/DL (3.2-5.2); ALKALINE PHOSPHATASE 124 U/L (45-117); ALT/SGPT 20 U/L (12-78); ANION GAP 8 MEQ/L (8-16); AST/SGOT 11 U/L (15-37); BILIRUBIN,TOTAL 0.4 MG/DL (0.2-1.0); BLOOD UREA NITROGEN 12 MG/DL (7-18); CALCIUM LEVEL 9.5 MG/DL (8.5-10.1); CARBON DIOXIDE LEVEL 30 MEQ/L (21-32); CHLORIDE LEVEL 101 MEQ/L (98-107); CHOLESTEROL LEVEL 274 MG/DL (<200); GLOMERULAR FILTRATION RATE > 60.0 (>51); GLUCOSE, FASTING 83 MG/DL (70-105); POTASSIUM SERUM 3.9 MEQ/L (3.5-5.1); SODIUM LEVEL 139 MEQ/L (136-145); TOTAL PROTEIN 7.2 GM/DL (6.4-8.2); TRIGLYCERIDES LEVEL 122 MG/DL (<150)
== END ==
LOC: M SFHCLACO 08:32
PROVIDERS: ATTEND Physician Assistant
DX: I10 Essential (primary) hypertension (principal); E78.2 Mixed hyperlipidemia; F32.9 Major depressive disorder, single episode, unspecified; K21.9 Gastro-esophageal reflux disease without esophagitis; E55.9 Vitamin D deficiency, unspecified; D22.39 Melanocytic nevi of other parts of face; R07.89 Other chest pain

== ENCOUNTER 2017-07-26 11:24 | Day surgery (SDC) | payer MEDICARE, MEDICAID ==
[~2017-07-26] VITALS: Ht 152.4 cm; Wt 58.7 kg
[2017-07-26] MEDS ORDERED: NS 1,000 ML IV ONE (13:00)
--- NOTE | 2017-07-26 14:07 | ROOR ---
Patient Name: Jace Todd Procedure Date: 07/26/2017 1:36 PM Date of : 1960 Age: 56 Room: [id number] Gender: Female Note Status: Finalized Procedure: Colonoscopy Indications: Multiple flat large serrated adenomata removed piecemeal and ablated with APC-4 months ago--this is early repeat to retreat. -- High risk colon cancer surveillance: Personal history of colonic polyps, Surveillance: History of piecemeal removal adenoma on last colonoscopy (< 3 yrs), Surveillance: High risk for colon cancer and History of adenomatous polyps, last colonoscopy (<3 yr), Surveillance: Personal history of piecemeal removal of adenoma on last colonoscopy (less than 1 year ago). Providers: Thierry POLANCO MD Referring MD: ALEJANDRA San PA-C Requesting Provider: Medicines: Monitored Anesthesia Care Complications: No immediate complications. Procedure: Pre-Anesthesia Assessment: - The heart rate, respiratory rate, oxygen saturations, blood pressure, adequacy of pulmonary ventilation, and response to care were monitored throughout the procedure. The Colonoscope was introduced through the anus and advanced to the cecum, identified by appendiceal orifice and ileocecal valve. The colonoscopy was performed without difficulty. The patient tolerated the procedure well. The quality of the bowel preparation was good. Findings: The perianal and digital rectal examinations were normal. Three carpet-like polyps were found in the ascending colon and cecum. The polyps were 7 to 15 mm in size. These polyps were removed with a piecemeal technique using a cold snare. Resection and retrieval were complete. These polyps were removed with a piecemeal technique using a hot snare. Resection and retrieval were complete. Three sessile polyps were found in the sigmoid colon. The polyps were 3 to 5 mm in size. These polyps were removed with a hot snare. Resection and retrieval were complete. Mild diverticulosis and small internal hemorrhoids. Impression: - Three 7 to 15 mm polyps in the ascending colon and in the cecum, removed piecemeal using a cold snare and removed piecemeal using a hot snare. Resected and retrieved. - Three 3 to 5 mm polyps in the sigmoid colon, removed with a hot snare. Resected and retrieved. - Mild diverticulosis and small internal hemorrhoids. Recommendation: - Repeat colonoscopy in 1 year. Thierry Polanco MD Thierry PLOANCO MD 07/26/2017 2:07:09 PM This report has been signed electronically. Number of Addenda: 0 Note Initiated On: 07/26/2017 1:36 PM Estimated Blood Loss: Estimated blood loss: none.
[2017-07-26 14:25] VITALS: BP 163/94
== END 2017-07-26 14:31 | disposition home or self-care (01) ==
LOC: M OPP 11:24
PROVIDERS: ATTEND Internal Medicine Gastroenterology
DX: Z09 Encounter for follow-up examination after completed treatment for conditions other than malignant neoplasm (principal); Z86.010 Personal history of colon polyps; Z80.0 Family history of malignant neoplasm of digestive organs; D12.2 Benign neoplasm of ascending colon; D12.0 Benign neoplasm of cecum; D12.5 Benign neoplasm of sigmoid colon; K57.30 Diverticulosis of large intestine without perforation or abscess without bleeding; K64.8 Other hemorrhoids; K21.9 Gastro-esophageal reflux disease without esophagitis; R12 Heartburn; M19.90 Unspecified osteoarthritis, unspecified site; M54.9 Dorsalgia, unspecified; F32.9 Major depressive disorder, single episode, unspecified; G43.909 Migraine, unspecified, not intractable, without status migrainosus; Z78.0 Asymptomatic menopausal state; F17.210 Nicotine dependence, cigarettes, uncomplicated; Z88.0 Allergy status to penicillin; Z79.899 Other long term (current) drug therapy; Z79.82 Long term (current) use of aspirin; Z80.3 Family history of malignant neoplasm of breast

== ENCOUNTER → 2017-10-23 | Outpatient (REF) | payer MEDICARE, MEDICAID ==
[2017-10-23 15:45] LABS: TOTAL 25(OH) VITAMIN D 22.6 NG/ML (30.0-100.0)
[2017-10-23 15:46] LABS: ALBUMIN/GLOBULIN RATIO 1.33 (1.00-1.93); ALKALINE PHOSPHATASE 141 U/L (45-117); ALT/SGPT 43 U/L (12-78); ANION GAP 6 MEQ/L (8-16); AST/SGOT 22 U/L (7-37); BILIRUBIN,TOTAL 0.4 MG/DL (0.2-1.0); BLOOD UREA NITROGEN 18 MG/DL (7-18); CALCIUM LEVEL 9.5 MG/DL (8.5-10.1); CARBON DIOXIDE LEVEL 32 MEQ/L (21-32); CHLORIDE LEVEL 101 MEQ/L (98-107); CHOLESTEROL LEVEL 237 MG/DL (<200); CHOLESTEROL RISK RATIO 3.703 (<5); CREATININE FOR GFR 0.94 MG/DL (0.55-1.30); GLOMERULAR FILTRATION RATE > 60.0 (>51); GLUCOSE, FASTING 87 MG/DL (70-100); HDL CHOLESTEROL 64 MG/DL (>40); LDL CHOLESTEROL 147.2 MG/DL (<100); NON-HDL-C 173 MG/DL; POTASSIUM SERUM 4.6 MEQ/L (3.5-5.1); SODIUM LEVEL 139 MEQ/L (136-145); TRIGLYCERIDES LEVEL 129 MG/DL (<150)
== END ==
LOC: M SFHCLACO 09:15
DX: E78.2 Mixed hyperlipidemia (principal); I10 Essential (primary) hypertension; E55.9 Vitamin D deficiency, unspecified
CPT/HCPCS: 80053

== ENCOUNTER → 2018-04-25 | Outpatient (REF) | payer MEDICARE, MEDICAID ==
[2018-04-25 15:00] LABS: ALBUMIN 3.8 GM/DL (3.2-5.2); ALBUMIN/GLOBULIN RATIO 1.27 (1.00-1.93); ALKALINE PHOSPHATASE 108 U/L (45-117); ALT/SGPT 23 U/L (12-78); ANION GAP 7 MEQ/L (8-16); AST/SGOT 13 U/L (7-37); BILIRUBIN,TOTAL 0.4 MG/DL (0.2-1.0); BLOOD UREA NITROGEN 14 MG/DL (7-18); CALCIUM LEVEL 9.5 MG/DL (8.5-10.1); CARBON DIOXIDE LEVEL 30 MEQ/L (21-32); CHLORIDE LEVEL 106 MEQ/L (98-107); CHOLESTEROL LEVEL 247 MG/DL (<200); CHOLESTEROL RISK RATIO 4.333 (<5); CREATININE FOR GFR 0.85 MG/DL (0.55-1.30); GLOMERULAR FILTRATION RATE > 60.0 (>51); GLUCOSE, FASTING 86 MG/DL (70-100); HDL CHOLESTEROL 57 MG/DL (>40); NON-HDL-C 190 MG/DL; POTASSIUM SERUM 4.2 MEQ/L (3.5-5.1); SODIUM LEVEL 143 MEQ/L (136-145); TOTAL PROTEIN 6.8 GM/DL (6.4-8.2); TRIGLYCERIDES LEVEL 110 MG/DL (<150)
[2018-04-25 15:04] LABS: TOTAL 25(OH) VITAMIN D 49.3 NG/ML (30.0-100.0)
== END ==
LOC: M SFHCLACO 08:12
DX: E78.2 Mixed hyperlipidemia (principal); I10 Essential (primary) hypertension; E55.9 Vitamin D deficiency, unspecified; Z79.899 Other long term (current) drug therapy
CPT/HCPCS: 80053

== ENCOUNTER → 2022-08-03 | Outpatient (CLI) | payer MEDICARE, MEDICAID ==
[~2022-08-03] MED LIST changes: -ASPI81TA85 PO; +ASPI81TA86 PO; +CYCL-707 PO; -CYCL10TA PO; -LISI-538 PO; +LISI20TA33 PO; -OMEP40CA2 PO; +OMEP40CA4 PO; -PROC5TA PO; +PROC5TAB57 PO
== END ==
LOC: M RAD 08:07
PROVIDERS: ATTEND Family Medicine
DX: I10 Essential (primary) hypertension (principal)

== ENCOUNTER → 2022-08-07 | Outpatient (REF) | payer MEDICARE, MEDICAID ==
[2022-08-07 18:45] LABS: ALBUMIN 3.8 GM/DL (3.2-5.2); ALT/SGPT 45 U/L (12-78); BILIRUBIN,TOTAL 0.4 MG/DL (0.2-1.0); BLOOD UREA NITROGEN 12 MG/DL (7-18); CALCIUM LEVEL 9.7 MG/DL (8.8-10.2); CARBON DIOXIDE LEVEL 30 MEQ/L (21-32); CHLORIDE LEVEL 103 MEQ/L (98-107); CHOLESTEROL LEVEL 194 MG/DL (<200); CHOLESTEROL RISK RATIO 3.288 (<5); CREATININE FOR GFR 0.76 MG/DL (0.55-1.30); GLOMERULAR FILTRATION RATE > 60.0 (>45); GLUCOSE, FASTING 95 MG/DL (70-100); HDL CHOLESTEROL 59 MG/DL (>40); LDL CHOLESTEROL 97 MG/DL (<100); NON-HDL-C 135 MG/DL; POTASSIUM SERUM 3.9 MEQ/L (3.5-5.1); SODIUM LEVEL 139 MEQ/L (136-145); TOTAL PROTEIN 6.8 GM/DL (6.4-8.2); TRIGLYCERIDES LEVEL 188 MG/DL (<150)
[2022-08-07 19:30] LABS: TOTAL 25(OH) VITAMIN D 34.8 NG/ML (30.0-100.0)
== END ==
LOC: M SFHCADAM 15:40
PROVIDERS: ATTEND Family Medicine
DX: I10 Essential (primary) hypertension (principal); E78.2 Mixed hyperlipidemia; E55.9 Vitamin D deficiency, unspecified

== ENCOUNTER → 2023-02-07 | Outpatient (REF) | payer MEDICARE, MEDICAID ==
[2023-02-07 16:51] LABS: ALKALINE PHOSPHATASE 121 U/L (46-116); ALT/SGPT 21 U/L (7.0-40); AST/SGOT 17 U/L (<34); BILIRUBIN,TOTAL 0.3 MG/DL (0.3-1.2); BLOOD UREA NITROGEN 12 MG/DL (9-23); CALCIUM LEVEL 9.6 MG/DL (8.3-10.6); CARBON DIOXIDE LEVEL 31 MMOL/L (20-31); CHLORIDE LEVEL 102 MMOL/L (98-107); CREATININE FOR GFR 0.84 MG/DL (0.55-1.30); GLOMERULAR FILTRATION RATE > 60.0 (>45); GLUCOSE, FASTING 74 MG/DL (74-106); POTASSIUM SERUM 4.6 MMOL/L (3.5-5.1); SODIUM LEVEL 139 MMOL/L (136-145); TOTAL PROTEIN 6.8 G/DL (5.7-8.2)
[2023-02-07 16:53] LABS: THYROID STIMULATING HORMONE 1.727 uIU/ML (0.55-4.78)
== END ==
LOC: M SFHCADAM 13:54
PROVIDERS: ATTEND Family Medicine
DX: I10 Essential (primary) hypertension (principal)

== ENCOUNTER → 2023-05-11 | Outpatient (CLI) | payer MEDICARE, MEDICAID | LOC: M RAD 13:51 | PROVIDERS: ATTEND Family Medicine | DX: F17.210 Nicotine dependence, cigarettes, uncomplicated (principal) ==

== ENCOUNTER → 2023-10-26 | Outpatient (REF) | payer MEDICARE, MEDICAID ==
[2023-10-26 19:46] LABS: ALKALINE PHOSPHATASE 124 U/L (46-116); ALT/SGPT 26 U/L (7.0-40); AST/SGOT 18 U/L (<34); BILIRUBIN,TOTAL 0.4 MG/DL (0.3-1.2); BLOOD UREA NITROGEN 14 MG/DL (9-23); CALCIUM LEVEL 9.9 MG/DL (8.3-10.6); CARBON DIOXIDE LEVEL 29 MMOL/L (20-31); CHLORIDE LEVEL 104 MMOL/L (98-107); CHOLESTEROL LEVEL 182 MG/DL (<200); CHOLESTEROL RISK RATIO 2.97 (<5); CREATININE FOR GFR 0.75 MG/DL (0.55-1.30); GLOMERULAR FILTRATION RATE > 60.0 (>45); GLUCOSE, FASTING 72 MG/DL (74-106); HDL CHOLESTEROL 61.2 MG/DL (>40); LDL CHOLESTEROL 100.6 MG/DL (<100); NON-HDL-C 120.8 MG/DL; POTASSIUM SERUM 4.6 MMOL/L (3.5-5.1); SODIUM LEVEL 139 MMOL/L (136-145); TOTAL PROTEIN 7.1 G/DL (5.7-8.2); TRIGLYCERIDES LEVEL 101 MG/DL (<150)
== END ==
LOC: M SFHCADAM 12:57
PROVIDERS: ATTEND Family Medicine
DX: I10 Essential (primary) hypertension (principal); E78.2 Mixed hyperlipidemia

== ENCOUNTER 2024-02-22 06:53 | Day surgery (SDC) | payer MEDICARE, MEDICAID ==
[~2024-02-22] VITALS: Ht 152.4 cm; Wt 61.0 kg
[~2024-02-22 06:53] MED LIST changes: +AMLO1TAB24 PO; +ASPI-226 PO; +HYDR-3490 PO; +PROC10TA5 PO; +PROP20TA72 PO; +SIMV40TA20 PO
[2024-02-22] MEDS: NS 1,000 ML IV ONE (07:25)
[2024-02-22] MEDS ORDERED: propofoL 200 MG/20 ML VIAL As Ordered ONE (07:52)
[2024-02-22] MEDS ORDERED: LIDOCAINE 2% 100MG/5ML SDV (FOR ANES.) As Ordered ONE (07:52)
[2024-02-22 09:15] VITALS: BP 141/81; TEMP 95.8; O2SAT 97
== END 2024-02-22 09:15 | disposition home or self-care (01) ==
LOC: M OPP 06:53
PROVIDERS: ATTEND Internal Medicine Gastroenterology
DX: Z12.11 Encounter for screening for malignant neoplasm of colon (principal); Z86.010 Personal history of colon polyps; D12.6 Benign neoplasm of colon, unspecified; K63.5 Polyp of colon; K57.30 Diverticulosis of large intestine without perforation or abscess without bleeding; K64.8 Other hemorrhoids; I10 Essential (primary) hypertension; E78.2 Mixed hyperlipidemia; F17.200 Nicotine dependence, unspecified, uncomplicated; Z79.02 Long term (current) use of antithrombotics/antiplatelets; Z79.82 Long term (current) use of aspirin; Z79.891 Long term (current) use of opiate analgesic; Z79.899 Other long term (current) drug therapy; Z88.0 Allergy status to penicillin

== ENCOUNTER → 2024-03-12 | Outpatient (CLI) | payer MEDICARE, MEDICAID | LOC: M PLAIMG 13:10 | PROVIDERS: ATTEND Family Medicine | DX: Z86.69 Personal history of other diseases of the nervous system and sense organs (principal) ==

== ENCOUNTER → 2024-06-13 | Outpatient (CLI) | payer MEDICARE, MEDICAID | LOC: M RAD 08:55 | PROVIDERS: ATTEND Family Medicine | DX: F17.211 Nicotine dependence, cigarettes, in remission (principal) ==

== ENCOUNTER → 2024-06-18 | Outpatient (REF) | payer MEDICARE, MEDICAID ==
[2024-06-23 14:38] LABS: HPV APTIMA Not Detected (Not Detected)
== END ==
LOC: M SFHCWAGY 17:35
PROVIDERS: ATTEND Family Medicine
DX: Z12.4 Encounter for screening for malignant neoplasm of cervix (principal)
CPT/HCPCS: 87624; G0123

== ENCOUNTER → 2024-10-13 | Outpatient (CLI) | payer MEDICARE, MEDICAID | LOC: M WHC 12:36 | PROVIDERS: ATTEND Obstetrics & Gynecology | DX: R87.619 Unspecified abnormal cytological findings in specimens from cervix uteri (principal) ==

== ENCOUNTER → 2025-04-29 | Outpatient (CLI) | payer OTHER, MEDICAID | LOC: M ADAMS 11:29 | PROVIDERS: ATTEND Physician Assistant | DX: M54.32 Sciatica, left side (principal) ==

== ENCOUNTER → 2025-07-24 | Outpatient (REF) | payer OTHER, MEDICAID ==
[~2025-07-24] MED LIST changes: -IBUP-1022 PO; +IBUP600T42 PO; -PROC5TAB57 PO; +PROC5TAB81 PO
[2025-07-24 18:00] LABS: BASO # 0.1 10^3/uL (0.0-0.2); BASO % 1.9 % (0.0-1.0); EOS # 0.1 10^3/uL (0.0-0.5); EOS % 2.4 % (0.0-3.0); LYMPH # 1.6 10^3/uL (1.5-5.0); LYMPH % 30.1 % (24.0-44.0); MONO # 0.5 10^3/uL (0.0-0.8); MONO % 10.0 % (2.0-8.0); NEUTROPHILS # 3.0 10^3/uL (1.5-8.5); NEUTROPHILS % 55.6 % (36.0-66.0); PLATELET COUNT, AUTOMATED 269 10^3/uL (150-450)
[2025-07-24 18:02] LABS: ALT/SGPT 15.0 U/L (7.0-40); AST/SGOT 15.0 U/L (<34); CALCIUM LEVEL 9.5 MG/DL (8.3-10.6); CARBON DIOXIDE LEVEL 31.0 MMOL/L (20-31); CHLORIDE LEVEL 107.0 MMOL/L (98-107); CHOLESTEROL LEVEL 196.0 MG/DL (<200); CHOLESTEROL RISK RATIO 3.31 (<5); CREATININE FOR GFR 0.74 MG/DL (0.55-1.30); GLOMERULAR FILTRATION RATE 89.7 (>45); LDL CHOLESTEROL 113.1 MG/DL (<100); NON-HDL-C 136.9 MG/DL; POTASSIUM SERUM 4.8 MMOL/L (3.5-5.1); SODIUM LEVEL 143.0 MMOL/L (136-145); TRIGLYCERIDES LEVEL 119.0 MG/DL (<150)
== END ==
LOC: M SFHCADAM 12:34
PROVIDERS: ATTEND Family Medicine
DX: Z00.00 Encounter for general adult medical examination without abnormal findings (principal); I10 Essential (primary) hypertension

== ENCOUNTER → 2025-08-24 | Outpatient (CLI) | payer OTHER, MEDICAID | LOC: M RAD 07:45 | PROVIDERS: ATTEND Family Medicine | DX: Z87.891 Personal history of nicotine dependence (principal) ==